=== PATIENT | female | born 1965 | race African-American/Black ===

== ENCOUNTER 2016-12-29 14:06 | Emergency (ER) | payer MEDICARE, MEDICAID ==
[~2016-12-29] VITALS: Ht 160 cm; Wt 132.0 kg
[~2016-12-29 14:06] MED LIST: ALBUTEROL; ALBUTEROL 90 MCG; BACL-141 PO; BUDE90AE; CARI350T27; CHOL100046 PO; CINN500C5 PO; GABA-290 PO; HYDR25TA PO; LOSA25TA12 PO; METO25TA6 PO; MULT-1146 PO; POTA10TA30 PO; SUCR1TAB PO; [UNRECOGNIZED DRUG - CODE] PO; [UNRECOGNIZED DRUG - CODE] PO
[2016-12-29] MEDS ORDERED: KETOROLAC 30MG/ML VIAL IV STA (15:47)
[2016-12-29] MEDS ORDERED: SODIUM CHLORIDE 0.9% 1,000 ML IV ONE (15:47)
[2016-12-29] MEDS ORDERED: ONDANSETRON HCL 4MG/2ML VIAL IV STA (15:47)
[2016-12-29] MEDS ORDERED: LEVETIRACETAM 500MG PREMIX 100 ML IV ONE (16:00)
[2016-12-29 16:15] LABS: EOSINOPHILS % 1.7 % (0.0-5.0); HEMATOCRIT. 43.8 % (36.0-48.0); HEMOGLOBIN. 14.2 g/dL (12.0-16.0); LYMPHOCYTES % 23.3 % (20.0-50.0); MEAN CORPUSCULAR HEMOGLOBIN 29.4 pg (28.0-32.0); MEAN CORPUSCULAR HGB CONC 32.4 g/dL (31.0-37.0); MEAN CORPUSCULAR VOLUME 90.8 fL (81.0-99.0); MEAN PLATELET VOLUME 8.1 fl (7.4-10.4); MONOCYTES % 7.6 % (2.0-8.0); NEUTROPHILS % 66.4 % (40.0-76.0); PLATELET 348 x1000/uL (130-400); RED BLOOD CELL COUNT 4.82 mill/uL (4.2-5.4); RED CELL DISTRIBUTION WIDTH 14.3 % (11.6-14.6); WHITE BLOOD COUNT 9.1 x1000/uL (4.5-11.0)
[2016-12-29 16:23] LABS: CHLORIDE 109 mEq/L (98-107); INDEX HEMOLYSI 1 (1-3); INDEX ICTERIC 1 (1-4); INDEX LIPEMIC 1 (1-3)
[2016-12-29 16:25] LABS: ALBUMIN 3.6 g/dL (3.4-5.0); ANION GAP 12; CALCIUM 8.9 mg/dL (8.5-10.1); CARBON DIOXIDE 27 mEq/L (21-32); UREA NITROGEN BLOOD 11 mg/dL (7-21)
[2016-12-29 16:32] LABS: HCG SCREEN NEGATIVE
[2016-12-29 16:35] LABS: ALANINE AMINOTRANSFERASE 21 IU/L (13-61); CREATINE KINASE 58 IU/L (26-192); ETHANOL BLOOD < 10 mg/dL; PHENYTOIN 0.7 ug/mL (10-20); eGFR > 60 mL/min (>60)
[2016-12-29 16:36] LABS: THYROID STIMULATING HORMONE 0.92 uIU/mL (0.36-3.74)
[2016-12-29 16:39] LABS: CARBAMAZEPINE < 0.5 ug/mL (4-12); PHENOBARBITAL < 2.1 ug/mL (15.0-40.0); VALPROIC ACID < 3.0 ug/mL (50-100)
[2016-12-29 17:55] VITALS: BP 120/75
== END 2016-12-29 19:50 | disposition home or self-care (01) ==
LOC: ER 14:07
DX: R56.9 Unspecified convulsions (principal); R51 Headache; M19.90 Unspecified osteoarthritis, unspecified site; J45.909 Unspecified asthma, uncomplicated; I10 Essential (primary) hypertension; Z79.899 Other long term (current) drug therapy; Z90.49 Acquired absence of other specified parts of digestive tract; Z98.890 Other specified postprocedural states
CPT/HCPCS: 36415; 70450; 80053; 80156; 80165; 80184; 80185; 82550; 84443; 84703; 85025; 85651; 93005; 96365; 96375; 99285; G0482; J1885; J1953; J2405; J7030

== ENCOUNTER → 2017-01-29 | Outpatient (CLI) | payer MEDICARE, MEDICAID | END | disposition home or self-care (01) | LOC: CARD 12:09 → EDSTATUS 12:52 | PROVIDERS: ATTEND Internal Medicine Critical Care Medicine | DX: R56.9 Unspecified convulsions (principal) ==

== ENCOUNTER 2017-11-05 15:39 | Inpatient (IN) | payer MEDICARE, MEDICAID ==
[~2017-11-05] VITALS: Ht 160 cm; Wt 131.5 kg
[~2017-11-05 15:39] MED LIST changes: -SUCR1TAB PO; +SUCR1TAB30 PO
[2017-11-05] MEDS ORDERED: ESLI400T PO (16:34)
[2017-11-05] MEDS ORDERED: SODIUM CHLORIDE 0.9% 1,000 ML IV ONE (20:58)
[2017-11-05] MEDS ORDERED: ONDANSETRON HCL 4MG/2ML INJ IV STA (21:03)
[2017-11-05] MEDS ORDERED: MORPHINE SULFATE 4 MG/ML CPJ (NOT FOR IM USE) IV STA (21:03)
[2017-11-05] MEDS ORDERED: LISINOPRIL 40MG TABLET PO ONE (21:15)
[2017-11-05 21:44] LABS: CLARITY URINE CLEAR (CLEAR); COLOR URINE YELLOW (YELLOW); KETONES URINE NEGATIVE (NEGATIVE); LEUKOCYTE ESTERASE URINE NEGATIVE (NEGATIVE); NITRITE URINE NEGATIVE (NEGATIVE); OCCULT BLOOD URINE 2+ (NEGATIVE); PH URINE 6.5 (4.5-8.0); PROTEIN URINE 1+ (NEGATIVE); SPECIFIC GRAVITY URINE 1.025 (1.005-1.030); UROBILINOGEN URINE 0.2 E.U./dL (0.2-1.0)
[2017-11-05 21:50] LABS: BASOPHILS % 1.3 % (0.0-2.0); HEMATOCRIT. 41.7 % (36.0-48.0); HEMOGLOBIN. 13.5 g/dL (12.0-16.0); LYMPHOCYTES % 20.5 % (20.0-50.0); MEAN CORPUSCULAR HEMOGLOBIN 29.6 pg (28.0-32.0); MEAN CORPUSCULAR VOLUME 91.4 fL (81.0-99.0); MEAN PLATELET VOLUME 8.7 fl (7.4-10.4); MONOCYTES % 6.9 % (2.0-8.0); NEUTROPHILS % 69.3 % (40.0-76.0); PLATELET 321 x1000/uL (130-400); RED BLOOD CELL COUNT 4.56 mill/uL (4.2-5.4); RED CELL DISTRIBUTION WIDTH 14.3 % (11.6-14.6)
[2017-11-05 21:57] LABS: PROTHROMBIN TIME 10.6 sec (9.4-11.6)
[2017-11-05 22:04] LABS: CHLORIDE 117 mEq/L (98-107)
[2017-11-05] MEDS ORDERED: KETOROLAC 30MG/ML VIAL IV NR (22:30)
[2017-11-06] MEDS ORDERED: ONDANSETRON HCL 4MG/2ML INJ IV ONE (01:15)
[2017-11-06] MEDS ORDERED: MORPHINE SULFATE 4 MG/ML CPJ (NOT FOR IM USE) IV ONE (01:15)
[2017-11-06] MEDS ORDERED: SODIUM CHLORIDE 0.9% 1,000 ML IV SCH (02:31)
[2017-11-06] MEDS ORDERED: LISI40TA4 PO (03:04)
[2017-11-06] MEDS ORDERED: ONDANSETRON HCL 4MG/2ML INJ IV PRN ×3 (04:45→13:00)
[2017-11-06] MEDS ORDERED: DIPHENHYDRAMINE 50MG/ML VIAL IV SCH (04:46)
[2017-11-06] MEDS ORDERED: HYDROMORPHONE HCL/PF 2MG/ML CPJ IV PRN ×3 (05:00→13:00)
[2017-11-06 06:30] VITALS: BP 131/79
[2017-11-06] MEDS ORDERED: LACTATED RINGERS 1,000 ML IV SCH (09:00)
[2017-11-06] MEDS ORDERED: IPRATROPIUM/ALBUTEROL 0.5-3(2.5)MG/3ML NEB INH PRN (09:30)
[2017-11-06] MEDS ORDERED: ACETAMINOPHEN 325MG TABLET PO PRN (09:30)
[2017-11-06] MEDS ORDERED: DIPHENHYDRAMINE 50MG/ML VIAL IV PRN (09:30)
[2017-11-06] MEDS ORDERED: HYDROCODONE/ACETAMINOPHEN 5/325MG TABLET PO PRN (09:30)
[2017-11-06] MEDS ORDERED: CLONIDINE 0.1MG TABLET PO PRN (09:30)
[2017-11-06] MEDS ORDERED: LEVOFLOXACIN 500MG PREMIX 100 ML IV SCH (11:00)
[2017-11-06] MEDS ORDERED: IODIXANOL 320MG/ML 200ML BOTTLE ONE (12:14)
[2017-11-06] MEDS ORDERED: DEXAMETHASONE 4MG/ML 1ML VIAL ONE (12:30)
[2017-11-06] MEDS ORDERED: FENTANYL CITRATE/PF 50MCG/ML 2ML VIAL ONE (12:30)
[2017-11-06] MEDS ORDERED: ONDANSETRON HCL 4MG/2ML INJ ONE (12:30)
[2017-11-06] MEDS ORDERED: PROPOFOL 200MG/20ML VIAL IV ONE (12:30)
[2017-11-06] MEDS ORDERED: MIDAZOLAM HCL 2 MG/2 ML VIAL ONE (12:30)
[2017-11-06] MEDS ORDERED: LIDOCAINE HCL/PF 1% 10 MG/ML 5ML VIAL ONE (12:46)
[2017-11-06] MEDS ORDERED: MEPERIDINE HCL/PF 25MG/ML CPJ IV PRN (13:00)
[2017-11-06] MEDS ORDERED: LABETALOL HCL 5MG/ML VIAL 20ML IV PRN (13:00)
[2017-11-06] MEDS ORDERED: TRAMADOL 50MG TABLET PO PRN (13:15)
[2017-11-06 15:30] VITALS: BP 129/87
[2017-11-06] MEDS ORDERED: MONTELUKAST SODIUM 10MG TABLET PO SCH (17:00)
[2017-11-06] MEDS ORDERED: IPRATROPIUM/ALBUTEROL 0.5-3(2.5)MG/3ML NEB HHN SCH (18:00)
[2017-11-06 18:46] VITALS: BP 129/87
[2017-11-06] MEDS ORDERED: FAMOTIDINE 20MG/2ML VIAL IV SCH (21:00)
[2017-11-26] MEDS ORDERED: MONT10TA21 PO (08:43)
[2017-11-26] MEDS ORDERED: OMEP40CA34 PO (08:43)
[2017-11-26] MEDS ORDERED: SPIR25TA6 PO (08:55)
[2017-11-26] MEDS ORDERED: ATROV IH (08:55)
[2017-11-26] MEDS ORDERED: BUME1TAB4 PO (08:55)
[2017-11-26] MEDS ORDERED: MIRA50TA PO (08:55)
[2017-11-26] MEDS ORDERED: TOPI50TA PO (08:55)
[2017-11-26] MEDS ORDERED: FLUT1BLS IH (08:55)
== END 2017-11-06 19:10 | disposition home or self-care (01) | DRG 699 ==
LOC: ER 20:07 → 6EST 11-06 02:31 → ENRESERV 11-06 04:40
PROVIDERS: ADMIT Internal Medicine; ATTEND Internal Medicine
PROC: BT1F1ZZ Fluoroscopy of Left Kidney, Ureter and Bladder using Low Osmolar Contrast (ICD-10-PCS; principal; 2017-11-06)
PROC: 0T778DZ Dilation of Left Ureter with Intraluminal Device, Via Natural or Artificial Opening Endoscopic (ICD-10-PCS; 2017-11-06)
DX: N13.9 Obstructive and reflux uropathy, unspecified (principal); Z68.43 Body mass index [BMI] 50.0-59.9, adult; E66.01 Morbid (severe) obesity due to excess calories; N13.8 Other obstructive and reflux uropathy; I10 Essential (primary) hypertension; E78.5 Hyperlipidemia, unspecified; G43.909 Migraine, unspecified, not intractable, without status migrainosus; G47.33 Obstructive sleep apnea (adult) (pediatric); G89.29 Other chronic pain; M54.9 Dorsalgia, unspecified; N20.1 Calculus of ureter; I83.90 Asymptomatic varicose veins of unspecified lower extremity; J45.909 Unspecified asthma, uncomplicated; K21.9 Gastro-esophageal reflux disease without esophagitis; M17.0 Bilateral primary osteoarthritis of knee; K29.70 Gastritis, unspecified, without bleeding; Z79.899 Other long term (current) drug therapy; Z90.710 Acquired absence of both cervix and uterus; Z90.49 Acquired absence of other specified parts of digestive tract
CPT/HCPCS: 36415; 74176; 74420; 93005; 96361; 96374; 96375; 96376; 99285; C2617; J1100; J1170; J1200; J1885; J1956; J2250; J2270; J2405; J2704; J3010; J3490; J7030; J7120; Q9967

== ENCOUNTER → 2017-11-26 | Day surgery (SDC) | payer MEDICARE, MEDICAID ==
[~2017-11-26] VITALS: Ht 160 cm; Wt 133.8 kg
[~2017-11-26] MED LIST changes: +ALBUTEROL 90MCG/PUFF 17GM INHALER INH ONE; +ATROV IH; +BUME1TAB4 PO; +CEFAZOLIN SODIUM 1000MG/VIAL ONE; +DEXAMETHASONE 4MG/ML 1ML VIAL ONE; +ESLI400T PO; +ESMOLOL HCL 10MG/ML 10ML VIAL IV ONE; +FENTANYL CITRATE/PF 50MCG/ML 2ML VIAL ONE; +FLUT1BLS IH; +GLYCOPYRROLATE 0.2 MG/ML 2ML VIAL ONE; +IOPAMIDOL 20 ML VIAL IT ONE; +LACTATED RINGERS 1,000 ML IV SCH; +LIDOCAINE HCL/PF 1% 10 MG/ML 5ML VIAL ONE; +LISI40TA4 PO; +METOCLOPRAMIDE HCL 10MG/2ML VIAL ONE; +MIDAZOLAM HCL 2 MG/2 ML VIAL ONE; +MIRA50TA PO; +MONT10TA21 PO; +MORPHINE SULFATE 2 MG/ML CPJ (NOT FOR IM USE) IV PRN; +MORPHINE SULFATE 4 MG/ML CPJ (NOT FOR IM USE) IV PRN; +NEOSTIGMINE METHYLSULFATE 1MG/ML 10 ML VIAL ONE; +OMEP40CA34 PO; +ONDANSETRON HCL 4MG/2ML VIAL ONE; +PHENYLEPHRINE HCL 10 MG/ML 1ML (IV VIAL) IV ONE; +PROPOFOL 200MG/20ML VIAL IV ONE; +ROCURONIUM BROMIDE 10MG/ML VIAL 5ML IV ONE; +SODIUM CHLORIDE 0.9% 10ML VIAL ONE; +SPIR25TA4 PO; +TERBUTALINE SULFATE 1MG/ML VIAL ONE; +TOPI50TA PO
[2017-12-06 17:08] LABS: CALC OXALATE DIHYDRATE 15 % (.); CALC OXALATE MONOHYDRATE 65 % (.); CALCIUM PHOSPHATE 20 % (.); CALCULI COLOR Tan (.); CALCULI WEIGHT 27.7 mg (.)
== END | disposition home or self-care (01) ==
LOC: OR 05:50
PROVIDERS: ATTEND Urology
DX: N20.1 Calculus of ureter (principal); Z90.710 Acquired absence of both cervix and uterus; E66.01 Morbid (severe) obesity due to excess calories; R06.01 Orthopnea; J44.9 Chronic obstructive pulmonary disease, unspecified; I42.9 Cardiomyopathy, unspecified; I25.2 Old myocardial infarction; Z98.890 Other specified postprocedural states; Z79.899 Other long term (current) drug therapy; E78.00 Pure hypercholesterolemia, unspecified; I10 Essential (primary) hypertension; K21.9 Gastro-esophageal reflux disease without esophagitis; G47.33 Obstructive sleep apnea (adult) (pediatric)
CPT/HCPCS: 52353; 74430; 82360; 88300; 93005; A4216; J0690; J1100; J2250; J2370; J2405; J2710; J2765; J3010; J3105; J3490; J7120; J2704; Q9966

== ENCOUNTER 2018-11-06 11:59 | Emergency (ER) | payer MEDICARE, MEDICAID ==
[~2018-11-06] VITALS: Ht 167.6 cm; Wt 118.0 kg
[~2018-11-06 11:59] MED LIST changes: -ALBUTEROL 90 MCG; -ALBUTEROL 90MCG/PUFF 17GM INHALER INH ONE; -BACL-141 PO; -BUDE90AE; -CARI350T27; -CEFAZOLIN SODIUM 1000MG/VIAL ONE; -CINN500C5 PO; -DEXAMETHASONE 4MG/ML 1ML VIAL ONE; -ESMOLOL HCL 10MG/ML 10ML VIAL IV ONE; -FENTANYL CITRATE/PF 50MCG/ML 2ML VIAL ONE; -GABA-290 PO; -GLYCOPYRROLATE 0.2 MG/ML 2ML VIAL ONE; -HYDR25TA PO; -IOPAMIDOL 20 ML VIAL IT ONE; -LACTATED RINGERS 1,000 ML IV SCH; -LIDOCAINE HCL/PF 1% 10 MG/ML 5ML VIAL ONE; -LOSA25TA12 PO; -METO25TA6 PO; -METOCLOPRAMIDE HCL 10MG/2ML VIAL ONE; -MIDAZOLAM HCL 2 MG/2 ML VIAL ONE; -MIRA50TA PO; -MORPHINE SULFATE 2 MG/ML CPJ (NOT FOR IM USE) IV PRN; -MORPHINE SULFATE 4 MG/ML CPJ (NOT FOR IM USE) IV PRN; -NEOSTIGMINE METHYLSULFATE 1MG/ML 10 ML VIAL ONE; -ONDANSETRON HCL 4MG/2ML VIAL ONE; -PHENYLEPHRINE HCL 10 MG/ML 1ML (IV VIAL) IV ONE; -POTA10TA30 PO; -PROPOFOL 200MG/20ML VIAL IV ONE; -ROCURONIUM BROMIDE 10MG/ML VIAL 5ML IV ONE; -SODIUM CHLORIDE 0.9% 10ML VIAL ONE; -SPIR25TA4 PO; +SPIR25TA6 PO; -SUCR1TAB30 PO; -TERBUTALINE SULFATE 1MG/ML VIAL ONE; -[UNRECOGNIZED DRUG - CODE] PO
[2018-11-06 13:13] LABS: BASOPHILS % 0.7 % (0.0-2.0); EOSINOPHILS % 1.2 % (0.0-5.0); HEMATOCRIT. 43.7 % (36.0-48.0); HEMOGLOBIN. 14.3 g/dL (12.0-16.0); LYMPHOCYTES % 21.4 % (20.0-50.0); MEAN CORPUSCULAR VOLUME 91.5 fL (81.0-99.0); MONOCYTES % 4.4 % (2.0-8.0); NEUTROPHILS % 72.3 % (40.0-76.0); PLATELET 397 x1000/uL (130-400); RED BLOOD CELL COUNT 4.77 mill/uL (4.2-5.4); RED CELL DISTRIBUTION WIDTH 13.8 % (11.6-14.6)
[2018-11-06 13:20] LABS: CHLORIDE 112 mEq/L (98-107)
[2018-11-06 14:55] VITALS: BP 148/97
== END 2018-11-06 15:18 | disposition home or self-care (01) ==
LOC: ER 11:59
DX: F41.9 Anxiety disorder, unspecified (principal); R00.0 Tachycardia, unspecified; R07.9 Chest pain, unspecified; I10 Essential (primary) hypertension; R00.2 Palpitations; J45.909 Unspecified asthma, uncomplicated; M19.90 Unspecified osteoarthritis, unspecified site; Z90.49 Acquired absence of other specified parts of digestive tract
CPT/HCPCS: 36415; 71045; 83880; 84484; 93005; 99284